=== PATIENT | female | born 1985 | race Caucasian/White ===

== ENCOUNTER 2017-02-02 10:10 | Day surgery (SDC) | payer BC ==
[2017-01-29 20:14] LABS: BASOPHILS 0.4 %; BASOPHILS ABSOLUTE 0.03 10/3/uL (0.0-0.16); EOSINOPHILS 4.4 %; EOSINOPHILS ABSOLUTE 0.37 10/3/uL (0.0-0.53); HEMOGLOBIN 15.3 g/dL (12.0-16.0); IMMATURE GRANULOCYTES 0.5 %; IMMATURE GRANULOCYTES ABSOLUTE 0.04 10/3/uL (0.0-0.11); LYMPHOCYTES ABSOLUTE 1.78 10/3/uL (0.67-4.30); MEAN CORPUSCULAR HEMOGLOB 32.6 pg (26.0-34.0); MEAN CORPUSCULAR VOLUME 95.7 fL (80-100); MEAN PLATELET VOLUME 10.2 fL (9.2-13.0); MONOCYTES 7.8 %; MONOCYTES ABSOLUTE 0.66 10/3/uL (0.21-1.20); NEUTROPHILS 65.9 %; NEUTROPHILS ABSOLUTE 5.61 10/3/uL (2.02-8.40); PLATELET COUNT 254 10/3/uL (150-400); RBC DISTRIBUTION WIDTH 12.1 % (12.0-16.0); WHITE BLOOD CELLS 8.5 10/3/uL (4.5-10.5)
[2017-01-29 20:15] LABS: MANUAL DIFF NO %
[2017-01-29 20:23] LABS: BUN (BLOOD UREA NITROGEN) 9 MG/DL (6-23); CALCIUM, SERUM 9.2 MG/DL (8.5-10.4); CHLORIDE, SERUM 104 MMOL/L (96-112); CO2 (CARBON DIOXIDE) 28 MMOL/L (24-34); CREATININE 0.47 MG/DL (0.55-1.02); GFR AFRICAN AMERICAN 155 ML/MIN (>=60); GFR NON AFRICAN AMERICAN 133 ML/MIN (>=60); GLUCOSE, SERUM 105 MG/DL (60-99); POTASSIUM, SERUM 4.3 MMOL/L (3.5-5.3); SODIUM, SERUM 140 MMOL/L (135-148)
--- NOTE | ~2017-02-02 | OP ---
Record Of Operation [facility] [address] [place]. [address] NAME: MARLA CORDVOA : 89 STATUS : [facility]#: [id number] AGE: 31 ADM/REG DATE : 02/02/17 MR#: [id number] REPORT SERV DATE: 02/02/17 DICTATED BY: DADA RODNEY DATE: 02/02/17 REPORT STATUS : Draft TRANSCRIBED BY: LISBET DATE: 02/02/17 DATE OF PROCEDURE: 02/02/2017 SURGEON: Dada Rodney DPM. PREOPERATIVE DIAGNOSES: Partial Achilles tear, right lower extremity; Wang's deformity, right lower extremity; equinus, right lower extremity. POSTOPERATIVE DIAGNOSES: Partial Achilles tear, right lower extremity; Wang's deformity, right lower extremity; equinus, right lower extremity. PROCEDURE: Achilles tendon repair with graft, right lower extremity; retrocalcaneal exostectomy, right lower extremity; gastrocnemius recession, right lower extremity. ANESTHESIA: General. HEMOSTASIS: Right thigh tourniquet set at 300 mmHg for 69 minutes. MATERIALS UTILIZED: The [employer] SpeedBridge System utilizing 4.75 mm SwiveLock [place] x4 and a 5.5 x 15 mm Corkscrew [place], 0 Vicryl, 2-0 Vicryl, 3-0 Vicryl, and 3-0 Prolene as well as [employer] ArthroFLEX Dermal Allograft. INJECTABLES: 30 mL of 0.5% ropivacaine plain, injected postoperatively. ESTIMATED BLOOD LOSS: Less than 5 mL. SPECIMENS: Specimens removed, bursa and bone from right lower extremity. COMPLICATIONS: None. CONDITION: Stable. JUSTIFICATION FOR PROCEDURE: The patient is a very pleasant 31-year-old female, who has had significant pain to her right heel for many years. The patient states that over the last several months, it has become so severe that she has difficulty with the activities of daily living. She has undergone x-rays and MRI, showing degeneration of the tendon as well as insertional tendinopathy. There is also significant bursitis noted and abnormal osseous insertion to her distal right Achilles. The patient exhausted conservative treatment including, but not limited to taping, strapping, shoe gear modification, activity modification, mobilization all of which have failed. It is at this time that the patient and her mother have elected for surgical intervention. Informed consent was given by myself in office. The patient is aware of all the risks, complications associated with this procedure. The patient understands the postoperative period and the postoperative course in detail, and understands all the risks of noncompliance. No guarantees were given, expressed, or implied. Record Of Operation [facility] [address] [place]. [address] NAME: MARLA CORDOVA : 89 STATUS : [facility]#: [id number] AGE: 31 ADM/REG DATE : 02/02/17 MR#: [id number] REPORT SERV DATE: 02/02/17 DICTATED BY: DADA RODNEY DATE: 02/02/17 REPORT STATUS : Draft TRANSCRIBED BY: LISBET DATE: 02/02/17 DESCRIPTION OF PROCEDURE: The patient was wheeled into the operative room with mild sedation by Anesthesia Services. General anesthesia was administered on the patient's bed. A well- padded tourniquet was applied about the right thigh and a time-out was performed confirming the patient's identity, procedure, and surgical site. Preoperative antibiotics were confirmed to be running. The patient was then turned into the prone position on the operative table, taking care to off load all bony and neurovascular structures. The right lower extremity was prepped, scrubbed, and draped in usual sterile fashion. An Esmarch bandage was utilized to exsanguinate the right lower extremity and then tourniquet was inflated to 300 mmHg. A second time out was performed again confirming the patient's surgical site, identity, and procedure. Skin marker was utilized to map out a 5 cm incision, linear fashion just medial to the patient's right Achilles tendon, which is found to be thickened and inflamed. The incision was curved down in a lazy hockey stick type incision fashion coursing laterally, near the base of the patient's right heel. A 15-blade was utilized to create an incision down to the level of subcutaneous tissue taking care to not tension the skin edges. Small bleeders were identified and cauterized with Bovie. Small tenotomy scissors were used to continue dissection down to level of the paratenon. It was at this level that an excellent surgical plane was created, let it be noted that there was extremely large bursal thickening and this bursa was debrided, placed on the back table to be sent for pathologic examination. Again, let it be noted that there was extremely bulbous appearance at both the bursa and distal insertion of Achilles with fraying noted. A U-type incision was created over the Achilles distal insertion reflecting the Achilles in its entirety approximately. It has been noted that prior to making this U-type incision, the sural nerve and lesser saphenous vein were identified on the lateral aspect of Achilles and were carefully protected by the construction management assistant. It has been noted that upon reflecting the Achilles tendon proximally, a second large bursa was identified, which had significant amounts of synovitis that was debrided and sent for pathologic examination. The tendon was generously reflected both proximally and distally. There was noted to be thickening to the more anterior insight of the patient's right Achilles. This was sharply debrided with 15- blade. Next, a sagittal saw was brought out to the field and was utilized to resect the posterior aspect of the calcaneus in a forecut manner and the abnormal osseous appearance of the right heel was corrected, creating a smooth surface for our future tendon insertion. X- ray was brought out onto the field and used to confirm adequate resection of the heel spur. The incision was then copiously irrigated with sterile saline. At this time, a 5.5 x 15 mm Corkscrew [place] was then inserted according to technique guide. There was excellent bite to this anchor. A #2 FiberWire was placed to the Achilles tendon and tied down for increased stability and to increase the surface area of the Achilles to the calcaneus. Let it be known that it was almost 2 cm proximal to our purposed SpeedBridge site that was added to better adhere the tendon down and again for increased stability. Next, the 4.75 SwiveLock anchors were brought onto the field and inserted just proximal to the Achilles insertion, and they are placed according to the technique guide with [employer] representatives in the room. We had excellent bite and excellent purchase. They were not converging or diverging off the heel. Both anchors were placed and the foot was placed in a slightly pinch flex position, but unfortunately due to the patient's significant equinus deformity, we were unable to get the foot out of plantar flexion and not close to 90. The patient would require gastrocnemius procedure, which will be performed after we had corrected the Wang's and the partial Achilles tear. Next, the SwiveLock SpeedBridge Anchors were placed according to technique guide. There was no bulbous thickening. We had excellent Record Of Operation [address] [place]. [address] NAME: MARLA CORDOVA : 89 STATUS : [facility] PAT#: [id number] AGE: 31 ADM/REG DATE : 02/02/17 MR#: [id number] REPORT SERV DATE: 02/02/17 DICTATED BY: DADA RODNEY DATE: 02/02/17 REPORT STATUS : Draft TRANSCRIBED BY: LISBET DATE: 02/02/17 bite of these anchors. A second x-ray was utilized to confirm excellent position of her anchors while the radiopaque handles for insertion were kept to confirm via fluoroscopy. Again, the incision was copiously irrigated and at this time, we had excellent correction of the deformity at the posterior aspect of the heel. Next, the ArthroFLEX Dermal Allograft was placed over the Achilles tendon at the site of the tear utilizing 0 Vicryl. The Achilles tear was reapproximated in a cruciate type fashion. The graft was then onlayed on to the Achilles tendon and was sutured in place utilizing 3-0 Vicryl along the entire periphery of the graft onto the Achilles tendon. Next, the wound was copiously irrigated again. A 2-0 Vicryl was utilized to reapproximate the U-type incision created in the Achilles tendon, 3-0 Vicryl was used to reapproximate the paratenon, and 3-0 Vicryl was utilized to reapproximate the subcutaneous tissue taking care not to interrupt the neurovascular structures. A 3-0 Prolene was used to reapproximate the skin in a horizontal mattress fashion. At this time, attention was directed to posterior central aspect of the leg where the gastrocsoleus aponeurosis was located and a 4 cm incision was made in a linear fashion in the midline of the aponeurosis down to subcutaneous. Both dissection was carried down to the aponeurosis. Care was taken to identify the sural nerve, and this was retracted laterally. Incision was made in the fascia overlying the aponeurosis and retracted medially and laterally. Next, while the tendon was tensioned, a 15-blade was utilized to tenotomize the aponeurosis both medially and laterally freeing the release of the contracture. The plantaris was not identified. If it was, we would have severed this tendon as well. Next, we had adequate correction of the equinus deformity. This wound was irrigated. We had improved amount of dorsiflexion. The patient was no longer in equinus. This wound was irrigated and the subcutaneous layer was closed with 3-0 Vicryl. Cutaneous layer was closed with 3-0 Prolene. At this time, tourniquet was deflated. We had immediate hyperemic response to the right lower extremity. The aforementioned postoperative nerve block was administered proximal to all incision sites. We had adequately repaired the Achilles tear, resected the retrocalcaneal exostectomy and reattached the Achilles tendon to the heel with excellent fixation as well as corrected equinus deformity utilizing a gastrocnemius recession. Xeroform was then applied to all incision sites followed by copious gauze, ABD pad, Kerlix. Next, the right lower extremity was placed in a very well padded posterior splint, and it was adhered to the right lower extremity with a 6-inch and a 4-inch Donnell Bandage like compression. The patient tolerated the procedure and anesthesia well, left the operating room with vital signs stable, and neurovascular status intact to her right lower extremity. The patient will be transferred to recovery where the nurse is asked to ice and elevate the patient's right lower extremity. The patient will be strictly nonweightbearing to right lower extremity. The patient will begin taking aspirin 81 mg twice a day. During this postoperative period, the patient has been instructed on all signs and symptoms of infection as well as deep venous thrombosis. The patient's mother as well as the patient herself know all the signs and symptoms, and they are instructed to call the office immediately or report emergently if any of these problems should occur. Again, the patient is to be strictly nonweightbearing and she understands the risk of noncompliance. I will follow up with the patient in 3 to 5 days in office. The patient again is to call the office immediately or report to the emergency room if any problems or signs of infection or DVT should occur prior Record Of Operation [address] [place]. [address] NAME: MARLA CORDOVA : 89 STATUS : [facility] PAT#: [id number] AGE: 31 ADM/REG DATE : 02/02/17 MR#: [id number] REPORT SERV DATE: 02/02/17 DICTATED BY: DADA RODNEY DATE: 02/02/17 REPORT STATUS : Draft TRANSCRIBED BY: LISBET DATE: 02/02/17 to her scheduled followup appointment. BLU/LISBET Dada Rodney DPM / [id number] CC: ABDIAZIZ Ashby LEANN M.
[~2017-02-02 10:10] MED LIST: PROZ10 PO
== END 2017-02-02 20:55 | disposition home or self-care (01) ==
LOC: SDC 10:10
PROVIDERS: Podiatrist
PROC: 0LUN0JZ Supplement Right Lower Leg Tendon with Synthetic Substitute, Open Approach (ICD-10-PCS; principal; 2017-02-02 12:00)
PROC: 0QBL0ZZ Excision of Right Tarsal, Open Approach (ICD-10-PCS; 2017-02-02 12:00)
PROC: 0L8N0ZZ Division of Right Lower Leg Tendon, Open Approach (ICD-10-PCS; 2017-02-02 12:00)
DX: M92.61 Juvenile osteochondrosis of tarsus, right ankle (principal); M21.541 Acquired clubfoot, right foot; S86.011A Strain of right Achilles tendon, initial encounter; X58.XXXA Exposure to other specified factors, initial encounter; Y93.9 Activity, unspecified; G47.33 Obstructive sleep apnea (adult) (pediatric); K21.9 Gastro-esophageal reflux disease without esophagitis; F32.9 Major depressive disorder, single episode, unspecified; E03.9 Hypothyroidism, unspecified; E66.01 Morbid (severe) obesity due to excess calories; Z68.41 Body mass index [BMI] 40.0-44.9, adult; Z87.09 Personal history of other diseases of the respiratory system; Z87.74 Personal history of (corrected) congenital malformations of heart and circulatory system; Z98.890 Other specified postprocedural states; Z79.899 Other long term (current) drug therapy; Z90.89 Acquired absence of other organs; Z90.49 Acquired absence of other specified parts of digestive tract; Z97.5 Presence of (intrauterine) contraceptive device
CPT/HCPCS: 73610-RT; 76000; 80048; 84703; 85025; 93005; A9270-GY; C1713; C1762; J0690; J2250; J2270; J2405; J2710; J2795; J3010; Q4125